=== PATIENT | male | born 1950 | race Caucasian/White ===

== ENCOUNTER 2023-09-20 15:26 | Inpatient (IN) | payer OTHER, MEDICARE ==
[~2023-09-20] VITALS: Ht 162.5 cm; Wt 68.0 kg
[2023-09-20 15:51] VITALS: BP 109/57
[2023-09-20 15:59] LABS: BASO # 0.1 10*3/uL (0.0-0.1); BASO % 1.1 % (0.0-1.0); EOS # 0.6 10*3/uL (0.0-0.4); EOS % 6.7 % (1.0-4.0); HEMATOCRIT 45.8 % (42.0-52.0); LYMPH # 1.9 10*3/uL (1.3-4.4); LYMPH % 22.7 % (27.0-41.0); MEAN CELL VOLUME 92.7 fl (80.0-94.0); MEAN CORPUSCULAR HGB 30.6 pg (27.0-31.0); MEAN PLATELET VOLUME 10.4 fl (9.6-12.3); MONO # 0.9 10*3/uL (0.1-1.0); MONO % 11.3 % (3.0-9.0); NEUT # 4.7 10*3/uL (2.3-7.9); NEUT % 57.7 % (47.0-73.0); PLATELET COUNT AUTOMATED 264 10*3/uL (130-400); RED BLOOD COUNT 4.94 10*6/uL (4.50-5.90); RED CELL DISTRI WIDTH 13.7 % (0-14.5); WHITE BLOOD COUNT 8.2 10*3/uL (4.8-10.8)
[2023-09-20 16:16] LABS: BUN 16 mg/dl (9-23); CHLORIDE 108 mmol/L (98-107); ETHYL ALCOHOL < 3.0 mg/dl (<3); POTASSIUM 3.9 mmol/L (3.4-5.1)
[2023-09-20] MEDS ORDERED: TYLENOL325 M2 PO (17:40)
[2023-09-20] MEDS ORDERED: ANTACID PO (17:41)
[2023-09-20] MEDS ORDERED: ASPIRIN ADULT L81 M1 PO (17:42)
[2023-09-20] MEDS ORDERED: CLARITIN10 MG PO (17:43)
[2023-09-20] MEDS ORDERED: DULCOLAX5 M1 PO (17:43)
[2023-09-20] MEDS ORDERED: COLACE100 MG PO (17:44)
[2023-09-20] MEDS ORDERED: COUGH DROPS1 EAC1 PO (17:45)
[2023-09-20] MEDS ORDERED: DEPAKOTE250 MG PO (17:46)
[2023-09-20] MEDS ORDERED: EXELON1 EAC2 TD (17:46)
[2023-09-20] MEDS ORDERED: LASIX40 MG PO (17:49)
[2023-09-20] MEDS ORDERED: COUGH SYRU100 MG/51 PO (17:49)
[2023-09-20] MEDS ORDERED: LIPITOR40 MG PO (17:50)
[2023-09-20] MEDS ORDERED: ANTI-DIARRHEAL2 MG PO (17:55)
[2023-09-20] MEDS ORDERED: Lopressor25 MG PO (17:56)
[2023-09-20] MEDS ORDERED: MILK OF MA400 MG/51 PO (17:56)
[2023-09-20] MEDS ORDERED: MYLANTA MAXIMU355 M1 PO (17:57)
[2023-09-20] MEDS ORDERED: PLAVIX75 M1 PO (17:58)
[2023-09-20] MEDS ORDERED: NAMENDA XR28 M1 PO (17:58)
[2023-09-20] MEDS ORDERED: POTASSIUM CHLO10 MEQ PO (18:00)
[2023-09-20] MEDS ORDERED: SENEXON-S 50-81 EACH PO (18:01)
[2023-09-20] MEDS ORDERED: SEROQUEL25 MG PO (18:01)
[2023-09-20 18:34] VITALS: BP 148/84
[2023-09-20] MEDS ORDERED: Ziprasidone Mesylate 20 MG VIAL IM PRN (19:00)
[2023-09-20] MEDS ORDERED: LORazepam 1 MG TAB PO PRN (19:00)
[2023-09-20] MEDS ORDERED: Water, Sterile 10 ML VIAL IM PRN (19:05)
[2023-09-20] MEDS ORDERED: ACETAMINOPHEN 325 MG TAB PO PRN (19:50)
[2023-09-20] MEDS ORDERED: Magnesium Hydroxide 30 ML UDC PO PRN (19:50)
[2023-09-20] MEDS ORDERED: MG-AL HYDROXIDE/SIMETICONE 30 ML UDC PO PRN (19:50)
[2023-09-20 20:00] VITALS: BP 148/84
[2023-09-20] MEDS ORDERED: RISPERIDONE 0.5 MG TAB PO SCH (21:00)
[2023-09-20] MEDS ORDERED: DIVALPROEX (DR) 250 MG TAB PO SCH (21:00)
[2023-09-20] MEDS ORDERED: Memantine Hydrochloride 10 MG TAB PO SCH (21:00)
[2023-09-21 08:33] LABS: VITAMIN D, 25-HYDROXY 12.6 ng/mL (30-100)
[2023-09-21 08:35] VITALS: BP 122/67
[2023-09-21 08:35] LABS: ALKALINE PHOSPHATASE 78 U/L (46-116); BUN 16 mg/dl (9-23); CHLORIDE 109 mmol/L (98-107); CHOLESTEROL 140 mg/dL (<200); LDL CHOLESTEROL 76 mg/dL (9-159); POTASSIUM 3.6 mmol/L (3.4-5.1); SGPT/ALT 18 U/L (5-49); TOTAL PROTEIN 6.4 gm/dL (6.0-8.0); TRIGLYCERIDES 103 mg/dl (<150); VALPROIC ACID (DEPAKENE) 52.6 ug/ml (50-100)
[2023-09-21] MEDS ORDERED: Metoprolol Tartrate 25 MG TAB PO SCH (09:00)
[2023-09-21] MEDS ORDERED: ASPIRIN, CHEWABLE 81 MG TAB PO SCH (09:00)
[2023-09-21] MEDS ORDERED: Clopidogrel Hydrogen Sulfate 75 MG TAB PO SCH (09:00)
[2023-09-21] MEDS ORDERED: FUROSEMIDE 40 MG TAB PO SCH (09:00)
[2023-09-21] MEDS ORDERED: RIVASTIGMINE 13.3 MG/24 HR TDM T SCH (09:00)
[2023-09-21] MEDS ORDERED: ERGOCALCIFEROL 50,000 IU CAP (1.25 MG) PO SCH (10:00)
[2023-09-21 20:00] VITALS: BP 101/72
[2023-09-21] MEDS ORDERED: ATORVASTATIN CALCIUM 40 MG TABLET PO SCH (21:00)
[2023-09-22 07:20] VITALS: BP 118/81
[2023-09-22] MEDS ORDERED: Cholecalciferol 5,000 IU CAP (125 MCG) PO SCH (09:00)
[2023-09-22] MEDS ORDERED: POTASSIUM CHLORIDE 10 MEQ TAB PO SCH (10:00)
[2023-09-22 20:00] VITALS: BP 111/87
[2023-09-23 08:00] VITALS: BP 104/51
[2023-09-23 20:00] VITALS: BP 129/79
[2023-09-24 08:00] VITALS: BP 98/75
[2023-09-24 20:00] VITALS: BP 112/32
[2023-09-25 08:10] VITALS: BP 121/61
[2023-09-25 20:00] VITALS: BP 124/51
[2023-09-26 07:12] LABS: BASO # 0.1 10*3/uL (0.0-0.1); BASO % 1.2 % (0.0-1.0); EOS # 0.6 10*3/uL (0.0-0.4); EOS % 6.6 % (1.0-4.0); HEMATOCRIT 47.2 % (42.0-52.0); LYMPH # 2.2 10*3/uL (1.3-4.4); LYMPH % 25.6 % (27.0-41.0); MEAN CELL VOLUME 94.6 fl (80.0-94.0); MEAN CORPUSCULAR HGB 30.7 pg (27.0-31.0); MEAN CORPUSCULAR HGB CONC 32.4 g/dl (33.0-37.0); MEAN PLATELET VOLUME 11.1 fl (9.6-12.3); MONO # 0.9 10*3/uL (0.1-1.0); MONO % 10.5 % (3.0-9.0); NEUT # 4.7 10*3/uL (2.3-7.9); NEUT % 55.6 % (47.0-73.0); PLATELET COUNT AUTOMATED 241 10*3/uL (130-400); RED BLOOD COUNT 4.99 10*6/uL (4.50-5.90); RED CELL DISTRI WIDTH 13.9 % (0-14.5); WHITE BLOOD COUNT 8.5 10*3/uL (4.8-10.8)
[2023-09-26 07:23] LABS: ALKALINE PHOSPHATASE 77 U/L (46-116); BUN 18 mg/dl (9-23); CHLORIDE 108 mmol/L (98-107); SGPT/ALT 16 U/L (5-49); TOTAL PROTEIN 6.5 gm/dL (6.0-8.0)
[2023-09-26 08:00] VITALS: BP 139/87
[2023-09-26 18:56] VITALS: BP 119/65
[2023-09-27 08:00] VITALS: BP 102/51
[2023-09-27] MEDS ORDERED: MEMANTINE HCL10 MG PO (08:57)
[2023-09-27] MEDS ORDERED: RIVASTIGMINE1 EAC2 T (08:57)
[2023-09-27] MEDS ORDERED: RISPERIDONE0.5 MG PO (08:57)
[2023-09-27] MEDS ORDERED: DIVALPROEX SOD250 MG PO (08:57)
[2023-09-27] MEDS ORDERED: Vitamin D (50,000 UN PO (08:57)
== END 2023-09-27 11:18 | DRG 883 ==
LOC: ED 15:26 → 3N 18:18 → EDHOLD 18:18 → 3N 20:37
PROVIDERS: Counselor Professional; Physician Assistant Medical; ADMIT Psychiatry & Neurology Psychiatry; ATTEND Psychiatry & Neurology Psychiatry
PROC: GZHZZZZ Group Psychotherapy (ICD-10-PCS; principal; 2023-09-27)
PROC: GZ51ZZZ Individual Psychotherapy, Behavioral (ICD-10-PCS; 2023-09-27)
DX: F63.81 Intermittent explosive disorder (principal); F02.811 Dementia in other diseases classified elsewhere, unspecified severity, with agitation; E55.9 Vitamin D deficiency, unspecified; Z66 Do not resuscitate; E78.2 Mixed hyperlipidemia; I25.10 Atherosclerotic heart disease of native coronary artery without angina pectoris; F17.210 Nicotine dependence, cigarettes, uncomplicated; R41.3 Other amnesia; G30.9 Alzheimer's disease, unspecified; Z79.1 Long term (current) use of non-steroidal anti-inflammatories (NSAID); Z79.82 Long term (current) use of aspirin; Z79.899 Other long term (current) drug therapy; Z90.49 Acquired absence of other specified parts of digestive tract; Z82.3 Family history of stroke; Z82.49 Family history of ischemic heart disease and other diseases of the circulatory system